=== PATIENT | female | born 1985 | race American Indian/Alaskan Native ===

== ENCOUNTER 2020-03-31 08:00 | Inpatient (IN) | payer OTHER ==
[2020-03-31 09:18] VITALS: BMI 28.4
[2020-03-31 09:54] LABS: BASO % 0.2 % (0-2.0); EOS % 0.3 % (0-4.5); HEMATOCRIT 28.3 % (32.4-45.2); HEMOGLOBIN 9.5 GM/dL (10.7-15.3); LYMPH % 24.6 % (8-40); MCH 29.5 pg (25.7-33.7); MCHC 33.6 g/dl (32.0-36.0); MEAN CELL VOLUME 87.8 fl (80-96); MEAN PLT VOLUME 8.9 fl (7.5-11.1); NEUT % 64.9 % (42.8-82.8); PLATELET COUNT 211 K/MM3 (134-434); RBC 3.22 M/mm3 (3.60-5.2); RDW 13.4 % (11.6-15.6)
[2020-03-31] MEDS ORDERED: ceFAZolin 2 GRAM PREMIX BAG IVPB ONE (09:55)
[2020-03-31] MEDS ORDERED: CITRIC ACID/SODIUM CITRATE 30 ML UNIT-DOSE CUP PO ONE (09:55)
[2020-03-31] MEDS ORDERED: ELECTROLYTE-148 SOLN 1,000 ML IV SCH (10:00)
[2020-03-31 10:08] LABS: INR 1.02 (0.83-1.09); PROTHROMBIN TIME (PATIENT) 12.3 SEC (9.7-13.0)
[2020-03-31 10:11] LABS: ACTIVATED PTT 23.9 SECONDS (25.2-36.5)
[2020-03-31 10:15] LABS: POTASSIUM 3.7 mmol/L (3.5-5.1)
[2020-03-31 10:16] LABS: CALCIUM 8.4 mg/dL (8.5-10.1)
[2020-03-31 10:17] LABS: BLOOD UREA NITROGEN 6.6 mg/dL (7-18)
[2020-03-31 10:21] LABS: CREATININE 0.4 mg/dL (0.55-1.3)
[2020-03-31] MEDS ORDERED: ceFAZolin SODIUM 1 GM VIAL ONE (10:22)
[2020-03-31] MEDS ORDERED: morphine SULFATE/PF 0.5 MG/ML (2cc Syringe - QUVA) ONE (10:22)
[2020-03-31] MEDS ORDERED: OXYTOCIN 20 UNITS in 0.9% NS 20 UNIT/1,000 ML INFUS.BAG IV ONE (10:26)
[2020-03-31] MEDS ORDERED: ONDANSETRON 4 MG/2 ML VIAL ONE (10:44)
[2020-03-31] MEDS ORDERED: ONDANSETRON 4 MG/2 ML VIAL IVPUSH PRN (11:02)
[2020-03-31] MEDS ORDERED: morphine SULFATE/PF 0.5 MG/ML (2cc Syringe - QUVA) EP ONE (11:02)
[2020-03-31] MEDS ORDERED: LACTATED RINGERS SOLUTION 1,000 ML IV SCH (11:15)
[2020-03-31 11:38] LABS: CORD BASE EXCESS -2.3 mmol/L (0-2); CORD HCO3 23.3 mmHg (20-29); CORD HCO3 27.6 mmHg (20-29); CORD PCO2 42.8 mmHg (30-78); CORD PCO2 58.1 mmHg (30-78); CORD pH 7.294 (7.14-7.44); CORD pH 7.353 (7.14-7.44)
[2020-03-31 11:55] LABS: HIV INTERPRETATION NEGATIVE (NEGATIVE)
[2020-03-31] MEDS ORDERED: WITCH HAZEL 50% (TUCKS) 40 PAD/JAR PAD TP PRN (12:06)
[2020-03-31] MEDS ORDERED: METHYLERGONOVINE MALEATE 0.2 MG/1 ML AMP IM PRN (12:06)
[2020-03-31] MEDS ORDERED: BENZOCAINE 20% 57 GM BOTTLE TP PRN (12:06)
[2020-03-31] MEDS ORDERED: ACETAMINOPHEN 325 MG TABLET (FP) PO PRN (12:06)
[2020-03-31] MEDS ORDERED: IBUPROFEN 600 MG TABLET (FP) PO PRN (12:06)
[2020-03-31] MEDS ORDERED: OXYTOCIN 20 UNITS in 0.9% NS 20 UNIT/1,000 ML INFUS.BAG IV SCH (12:30)
[2020-03-31] MEDS ORDERED: ACETAMINOPHEN INJECTION 100 ML IVPB ONE (14:12)
[2020-03-31] MEDS ORDERED: ACETAMINOPHEN 1000 MG/100 ML VIAL (NON FORMULARY) IVPB ONE (14:40)
[2020-03-31] MEDS: CEFAZOLIN 1 GM/D5W 1 GM/50 ML BAG IVPB SCH (17:51)
[2020-03-31] MEDS: FERROUS SO4 325 MG TABLET (FP) PO SCH (22:30)
[2020-04-01] MEDS: CEFAZOLIN 1 GM/D5W 1 GM/50 ML BAG IVPB SCH ×2 (01:23→09:10)
[2020-04-01] MEDS: ACETAMINOPHEN 325 MG TABLET (FP) PO PRN ×2 (04:06→16:51)
[2020-04-01] MEDS: IBUPROFEN 600 MG TABLET (FP) PO PRN ×3 (04:06→21:25)
[2020-04-01] MEDS: SIMETHICONE 80 MG TAB.CHEW (FP) PO PRN ×3 (04:07→21:25)
[2020-04-01 08:49] LABS: BASO % 0.4 % (0-2.0); EOS % 0.6 % (0-4.5); HEMATOCRIT 27.8 % (32.4-45.2); HEMOGLOBIN 9.4 GM/dL (10.7-15.3); LYMPH % 17.5 % (8-40); MCH 29.6 pg (25.7-33.7); MCHC 33.8 g/dl (32.0-36.0); MEAN CELL VOLUME 87.7 fl (80-96); MEAN PLT VOLUME 9.3 fl (7.5-11.1); MONO % 8.7 % (3.8-10.2); NEUT % 72.8 % (42.8-82.8); PLATELET COUNT 181 K/MM3 (134-434); RBC 3.17 M/mm3 (3.60-5.2); RDW 13.4 % (11.6-15.6); WHITE BLOOD COUNT 9.3 K/mm3 (4.0-10.0)
[2020-04-01] MEDS: FERROUS SO4 325 MG TABLET (FP) PO SCH ×2 (09:15→21:25)
[2020-04-01] MEDS: DOCUSATE SODIUM 100 MG CAPSULE (FP) PO SCH (09:15)
[2020-04-01] MEDS: PRENATAL VITAMINS W/ FOLIC ACID TABLET (FP) PO SCH (09:15)
[2020-04-01] MEDS ORDERED: oxyCODONE HCL 5 MG TABLET PO PRN (12:06)
[2020-04-01] MEDS ORDERED: BISACODYL 10 MG SUPP.RECT RC PRN (12:06)
[2020-04-01] MEDS: SENNOSIDES/DOCUSATE COMBO (SENNA PLUS) TABLET (UD) PO PRN (21:26)
[2020-04-02] MEDS: ACETAMINOPHEN 325 MG TABLET (FP) PO PRN ×2 (09:16→13:33)
[2020-04-02] MEDS: PRENATAL VITAMINS W/ FOLIC ACID TABLET (FP) PO SCH (09:17)
[2020-04-02] MEDS: DOCUSATE SODIUM 100 MG CAPSULE (FP) PO SCH (09:17)
[2020-04-02] MEDS: FERROUS SO4 325 MG TABLET (FP) PO SCH ×2 (09:17→21:44)
[2020-04-02] MEDS: IBUPROFEN 600 MG TABLET (FP) PO PRN (13:34)
[2020-04-02] MEDS: SIMETHICONE 80 MG TAB.CHEW (FP) PO PRN ×2 (16:26→21:45)
[2020-04-02] MEDS: SENNOSIDES/DOCUSATE COMBO (SENNA PLUS) TABLET (UD) PO PRN (21:45)
[2020-04-03] MEDS: SIMETHICONE 80 MG TAB.CHEW (FP) PO PRN ×2 (01:04→06:07)
[2020-04-03] MEDS: IBUPROFEN 600 MG TABLET (FP) PO PRN (01:04)
[2020-04-03] MEDS: ACETAMINOPHEN 325 MG TABLET (FP) PO PRN (01:05)
[2020-04-03 09:05] LABS: BASO % 0.2 % (0-2.0); EOS % 1.2 % (0-4.5); HEMATOCRIT 28.4 % (32.4-45.2); HEMOGLOBIN 9.7 GM/dL (10.7-15.3); LYMPH % 22.7 % (8-40); MCH 29.6 pg (25.7-33.7); MEAN PLT VOLUME 8.4 fl (7.5-11.1); MONO % 5.3 % (3.8-10.2); NEUT % 70.6 % (42.8-82.8); PLATELET COUNT 242 K/MM3 (134-434); RBC 3.27 M/mm3 (3.60-5.2); RDW 13.6 % (11.6-15.6); WHITE BLOOD COUNT 7.6 K/mm3 (4.0-10.0)
[2020-04-03] MEDS: FERROUS SO4 325 MG TABLET (FP) PO SCH (09:49)
[2020-04-03] MEDS: DOCUSATE SODIUM 100 MG CAPSULE (FP) PO SCH (09:49)
[2020-04-03] MEDS: PRENATAL VITAMINS W/ FOLIC ACID TABLET (FP) PO SCH (09:49)
[2020-04-03 12:53] VITALS: BP 110/71; PULSE 83; TEMP 98
== END 2020-04-03 12:15 | disposition home or self-care (01) | DRG 540 ==
LOC: EDBD → JLDR 08:00 → J3W 14:21
PROVIDERS: ADMIT Obstetrics & Gynecology; ATTEND Obstetrics & Gynecology
PROC: 10D00Z1 Extraction of Products of Conception, Low, Open Approach (ICD-10-PCS; principal; 2020-03-31)
DX: O34.219 Maternal care for unspecified type scar from previous cesarean delivery (principal); Z3A.39 39 weeks gestation of pregnancy; Z37.0 Single live birth
CPT/HCPCS: 36415; 36600; 80048; 82803; 85025; 85610; 85730; 86780; 86850; 86900; 86901; 86922; 87389; 88307-TC; J0131